=== PATIENT | male | born 1955 | race American Indian/Alaskan Native ===

== ENCOUNTER 2017-06-17 10:56 | Emergency (ER) | payer OTHER ==
[2017-06-17 11:48] LABS: Basophils % (Auto) 0.7 % (0.0-1.8); Eosinophils % (Auto) 0.3 % (0.0-4.3); Hematocrit 44.7 % (35.5-45.6); Hemoglobin 15.6 gm/dl (11.8-15.2); Lymphocytes # (Auto) 0.9 K/mm3 (1.2-5.4); Lymphocytes % (Auto) 16.7 % (13.4-35.0); Mean Corpuscular HGB Conc 35 % (32-34); Mean Corpuscular Hemoglobin 33 pg (28-32); Mean Corpuscular Volume 94 fl (84-94); Monocytes # (Auto) 0.3 K/mm3 (0.0-0.8); Monocytes % (Auto) 5.1 % (0.0-7.3); Platelet Count 258 K/mm3 (140-440); Red Blood Count 4.77 M/mm3 (3.65-5.03); Red Cell Distribution Width 13.6 % (13.2-15.2)
[2017-06-17 12:06] LABS: BUN/Creatinine Ratio 13; Blood Urea Nitrogen 9 mg/dL (9-20); Calcium 9.5 mg/dL (8.4-10.2); Hemolysis Index 28
[2017-06-17] MEDS ORDERED: CATAPRES PO ONE (12:58)
--- NOTE | 2017-06-17 13:02 | Emergency Department Report ---
ED General Adult HPI - General Chief complaint: High BP Stated complaint: HTN Time Seen by Provider: 06/17/17 12:53 Source: patient Mode of arrival: Ambulatory Limitations: No Limitations - History of Present Illness Initial comments: Patient is 61 years old male history of coronary artery disease, hypertension the patient. Patient presented to the ER with high blood pressure of 176/119. Patient stated that he was seen at [facility] yesterday and he was told to go to the ER if his blood pressure was not coming down. Patient denied any chest pain, shortness of breath, headache, weakness numbness or tingling sensation. No bowel or bladder incontinence. Patient is currently taking metoprolol and aspirin. Severity scale (0 -10): 0 - Related Data Home Medications Medication Instructions Recorded Confirmed Last Taken Aspirin [Crane Aspirin] 81 mg PO 09/28/13 09/28/13 Unknown Metoprolol [Lopressor TAB] 100 mg PO QDAY 09/28/13 09/28/13 Unknown Rosuvastatin Calcium [Crestor] 40 mg PO QHS 09/28/13 09/28/13 Unknown Previous Rx's Medication Instructions Recorded Last Taken Type Aspirin [Aspirin TAB] 325 mg PO QDAY #30 tablet 09/30/13 Unknown Rx Isosorbide Mononitrate [Isosorbide 30 mg PO DAILY #30 tab.er.24h 09/30/13 Unknown Rx Mononitrate ER] Lisinopril [Zestril TAB] 10 mg PO QDAY #30 tablet 09/30/13 Unknown Rx Prasugrel [Effient] 10 mg PO QDAY #30 tablet 09/30/13 Unknown Rx Allergies Allergy/AdvReac Type Severity Reaction Status Date / Time No Known Allergies Allergy Unverified 09/28/13 17:30 ED Review of Systems ROS: Stated complaint: HTN Other details as noted in HPI Comment: All other systems reviewed and negative Constitutional: denies: chills, fever Respiratory: denies: cough, orthopnea, shortness of breath, SOB with exertion, SOB at rest Cardiovascular: denies: chest pain, palpitations Gastrointestinal: denies: abdominal pain, nausea, vomiting, diarrhea, constipation, hematemesis, melena, hematochezia Musculoskeletal: denies: back pain Neurological: denies: headache, weakness, numbness, paresthesias, confusion, abnormal gait ED Past Medical Hx - Past Medical History Previous Medical History?: Yes Hx Hypertension: Yes Hx Heart Attack/AMI: Yes Additional medical history: high cholesterol - Surgical History Past Surgical History?: Yes Hx Coronary Stent: Yes (Had 4 stents in 2000) Additional Surgical History: cardia stent placement - Social History Smoking Status: Never Smoker Substance Use Type: Alcohol, Marijuana, Prescribed - Medications Home Medications: Home Medications Medication Instructions Recorded Confirmed Last Taken Type Aspirin [Crane Aspirin] 81 mg PO 09/28/13 09/28/13 Unknown History Metoprolol [Lopressor TAB] 100 mg PO QDAY 09/28/13 09/28/13 Unknown History Rosuvastatin Calcium [Crestor] 40 mg PO QHS 09/28/13 09/28/13 Unknown History Aspirin [Aspirin TAB] 325 mg PO QDAY #30 tablet 09/30/13 Unknown Rx Isosorbide Mononitrate [Isosorbide 30 mg PO DAILY #30 tab.er.24h 09/30/13 Unknown Rx Mononitrate ER] Lisinopril [Zestril TAB] 10 mg PO QDAY #30 tablet 09/30/13 Unknown Rx Prasugrel [Effient] 10 mg PO QDAY #30 tablet 09/30/13 Unknown Rx ED Physical Exam - General Limitations: No Limitations General appearance: alert, in no apparent distress - Head Head exam: Present: atraumatic, normocephalic, normal inspection - Eye Eye exam: Present: normal appearance, PERRL - ENT ENT exam: Present: normal exam, normal orophraynx, mucous membranes moist - Neck Neck exam: Present: normal inspection, full ROM. Absent: tenderness, meningismus, lymphadenopathy, thyromegaly - Respiratory Respiratory exam: Present: normal lung sounds bilaterally. Absent: respiratory distress, wheezes, rales, rhonchi, stridor, chest wall tenderness, decreased breath sounds, prolonged expiratory - Cardiovascular Cardiovascular Exam: Present: regular rate, normal rhythm, normal heart sounds - GI/Abdominal GI/Abdominal exam: Present: soft, normal bowel sounds. Absent: distended, tenderness, guarding, rebound, rigid, mass, bruit, pulsatile mass - Extremities Exam Extremities exam: Present: normal inspection, full ROM, normal capillary refill - Back Exam Back exam: Present: normal inspection, full ROM. Absent: tenderness, CVA tenderness (R), CVA tenderness (L), muscle spasm, paraspinal tenderness, vertebral tenderness - Neurological Exam Neurological exam: Present: alert, oriented X3, CN II-XII intact, normal gait - Skin Skin exam: Present: warm, intact, normal color. Absent: cyanosis ED Course Vital Signs 06/17/17 06/17/17 06/17/17 11:05 12:20 13:03 Temperature 98.2 F 98.1 F Pulse Rate 85 76 Respiratory 20 20 18 Rate Blood Pressure 176/119 188/111 O2 Sat by Pulse 100 99 Oximetry 06/17/17 06/17/17 06/17/17 13:08 13:13 13:15 Temperature Pulse Rate 72 73 70 Respiratory 23 20 Rate Blood Pressure 182/114 O2 Sat by Pulse Oximetry 06/17/17 06/17/17 06/17/17 13:17 13:30 13:45 Temperature Pulse Rate 72 74 72 Respiratory 21 19 Rate Blood Pressure 182/114 164/99 153/93 O2 Sat by Pulse Oximetry 06/17/17 06/17/17 06/17/17 14:00 14:15 14:30 Temperature Pulse Rate 75 73 73 Respiratory 19 19 18 Rate Blood Pressure 145/93 142/90 140/90 O2 Sat by Pulse Oximetry 06/17/17 06/17/17 14:45 15:00 Temperature Pulse Rate 71 79 Respiratory 20 16 Rate Blood Pressure 152/94 148/95 O2 Sat by Pulse Oximetry - Reevaluation(s) Reevaluation #1: 06/17/17 15:20 Blood pressure now is 148/95. I will add hydrochlorothiazide to the patient regimen and advised to follow-up with his primary care physician in the next 2- 3 days. ED Medical Decision Making - Lab Data Result diagrams: 06/17/17 11:21 06/17/17 11:21 - Radiology Data Radiology results: report reviewed Referring Physician: ARACELIS DOMINGUEZ Patient Name: VALERI MOORE Date of : 1955 Sex: Male Report Date: 2017-06-17 Report Status: Finalized Findings [facility] [address] [place] [address] XRay Report Signed Patient: VALERI MOORE MR#: [id number] : 1955 Acct:[id number] Age/Sex: 61 / M ADM Date: 06/17/17 Loc: ED Attending Dr: Ordering Physician: ARACELIS DOMINGUEZ Date of Service: 06/17/17 Procedure(s): XR chest routine 2V Accession Number(s): [id number] cc: ARACELIS DOMINGUEZ Fluoro Time In Minutes: ROUTINE CHEST, TWO VIEWS: HISTORY: Shortness of breath. The trachea, heart, mediastinal contour, lung salcido and bony thorax are unremarkable. IMPRESSION: Unremarkable chest x-ray. Transcribed By: TTR Dictated By: SUZANNE WEBB JR, MD Electronically Authenticated By: SUZANNE WEBB JR, MD Signed Date/Time: 06/17/17 135 DD/ 135 TD/TT: 06/17/17 1350 Critical care attestation.: If time is entered above; I have spent that time in minutes in the direct care of this critically ill patient, excluding procedure time. ED Disposition Clinical Impression: Hypertensive urgency Disposition: DC-01 TO HOME OR SELFCARE Is pt being admited?: No Condition: Stable Instructions: Chronic Hypertension (ED) Referrals: PRIMARY CARE, [Primary Care Provider] - 3-5 Days
--- NOTE | 2017-06-17 13:58 | XRay Report ---
ROUTINE CHEST, TWO VIEWS: HISTORY: Shortness of breath. The trachea, heart, mediastinal contour, lung salcido and bony thorax are unremarkable. IMPRESSION: Unremarkable chest x-ray.
[2017-06-17 15:14] VITALS: BP 148/95
== END 2017-06-17 15:59 | disposition home or self-care (01) ==
LOC: ED 10:56
DX: I16.0 Hypertensive urgency (principal); I10 Essential (primary) hypertension; I25.2 Old myocardial infarction; E78.00 Pure hypercholesterolemia, unspecified; F12.10 Cannabis abuse, uncomplicated; Z79.82 Long term (current) use of aspirin
CPT/HCPCS: 36415; 71046; 80048; 84484; 85025; 93005; 93010; 99284

== ENCOUNTER 2019-09-19 10:52 | Emergency (ER) | payer OTHER ==
[2019-09-19 11:30] VITALS: BP 167/93
--- NOTE | 2019-09-19 12:15 | Emergency Department Report ---
Chief Complaint: Back Pain/Injury Stated Complaint: LOWER BACK PAIN Time Seen by Provider: 09/19/19 12:08 - HPI History of Present Illness: pt is a 63 yo male who presents to the ED with c/o lower back pain. he has a hx of chronic back pain. he states that he dropped some medication on the ground two days ago and bent over to pick it up and began having right lower back pain. he states the pain radiates down his right leg. pt has been ambulatory. he denies any numbness, weakness, no fever, no bowel or bladder incontinence. no hx of cancer, no hx of steroid use. PMHx MS with stent, HTN, HLD. no allergies to meds. he endorses marijuana use. Vitals are stable On exam: Non toxic appearing, no acute distress atraumatic, normocephalic normal appearance of the eyes, PERRL, EOMI, no periorbital edema or ecchymosis moist mucus membranes regular heart rate and rhythm, no gallops, no rubs, no murmurs breath sounds are clear bilaterally, no w/r/r No midline or paraspinal C-spine, T-spine, L-spine tenderness to palpation, no step-offs, no deformities A&O x4, no focal neuro deficit, normal gait, cranial nerve II through XII intact, 5 out of 5 muscle strength in the bilateral upper extremities and lower extremities, sensation intact throughout, strong distal pulses, full range of motion of the bilateral lower extremities skin is warm, dry, intact Patient is presenting with symptoms of low back strain versus sciatica He has no midline tenderness, no step-offs, no deformities, no neuro deficits He has no red flag warning signs of back pain, no trauma, no unexplained weight loss, no neuro deficits, no fever, no IV drug use, no steroid use, no history of cancer Discussed supportive care and symptomatic treatment for patient Patient given handout for sciatica stretches Patient will be referred to a primary care doctor and orthopedic doctor Discussed in detail with patient strict return precautions advised pt please alternate tylenol then aleve every 6-8 hours as needed for discomfort. may use ice pack, heating pad, rest, epsom salt bath. follow up with an orthopedic doctor. follow up with your primary care doctor. avoid heavy lifting. return to the emergency room for any new or worsening symptoms. Medical screening examination performed and there is no threat to life or limb at this time - Exam Vital Signs: Vital Signs 09/19/19 11:28 Temperature 98.0 F Pulse Rate 77 Respiratory 20 Rate Blood Pressure 167/93 O2 Sat by Pulse 98 Oximetry MSE screening note: Focused history and physical exam performed.: ED Disposition for MSE Clinical Impression: Lower back pain Qualifiers: Chronicity: acute Back pain laterality: right Sciatica presence: with sciatica Sciatica laterality: sciatica of right side Qualified Code(s): M54.41 - Lumbago with sciatica, right side Disposition: MED SCREENING EXAM-LEFT Is pt being admited?: No Does the pt Need Aspirin: No Condition: Stable Instructions: Sciatica (ED), Low Back Strain (ED) Additional Instructions: please alternate tylenol then aleve every 6-8 hours as needed for discomfort. may use ice pack, heating pad, rest, epsom salt bath. follow up with an orthopedic doctor. follow up with your primary care doctor. avoid heavy lifting. return to the emergency room for any new or worsening symptoms. Referrals: PRIMARY MD DRISS [Primary Care Provider] - 3-5 Days [facility] [Provider Group] - 3-5 Days IDALIA FAIR MD [Staff Physician] - 3-5 Days Forms: Work/School Release Form(ED) Time of Disposition: 12:15 Print Language: QATARI
== END 2019-09-19 12:37 | disposition left against medical advice (07) ==
LOC: ED 10:52
DX: M54.5 Low back pain (principal); Z53.21 Procedure and treatment not carried out due to patient leaving prior to being seen by health care provider